=== PATIENT | male | born 1995 | race Caucasian/White ===

== ENCOUNTER 2021-04-03 01:29 | Emergency (ER) | payer OTHER ==
[~2021-04-03] VITALS: Ht 175.3 cm; Wt 91.2 kg
[2021-04-03] MEDS ORDERED: ZYNCOF 20-400120 ML PO (05:37)
== END 2021-04-03 05:42 | disposition home or self-care (01) ==
LOC: ER 01:29
DX: U07.1 COVID-19 (principal)

== ENCOUNTER 2024-02-09 12:17 | Emergency (ER) | payer OTHER ==
[~2024-02-09] VITALS: Ht 175.3 cm; Wt 92.1 kg
[~2024-02-09 12:17] MED LIST: ALLEGRA-D 24 H1 EACH PO; INTESTINEX680 M1 PO; ONDANSETRON HCL4 MG PO; PEPCID AC10 MG PO; ZYNCOF 20-400120 ML PO
[2024-02-09] MEDS ORDERED: RINGERS SOLUTION,LACTATED 1,000 ML IV STA (13:08)
[2024-02-09] MEDS ORDERED: FAMOtidine 10 MG/ML (4ML VIAL) IV STA (13:10)
[2024-02-09] MEDS ORDERED: ONDANSETRON HCL 2 MG/ML VIAL IV ONE (13:15)
[2024-02-09 13:47] LABS: HEMATOCRIT 44.7 % (39.0-48.0); HEMOGLOBIN 15.2 g/dL (13-16.00); MEAN CELL VOLUME 85.8 fL (80.0-100.00); MEAN CORPUSCULAR HEMOGLOBIN 29.1 pg (27.00-32.0); MEAN CORPUSCULAR HGB CONC 33.9 g/dl (32.0-36.0); PLATELET COUNT 215 K/uL (150-450); RED BLOOD COUNT 5.21 M/uL (4.00-6.00); RED CELL DISTRIBUTION WIDTH 12.6 % (11.5-14.5)
[2024-02-09 14:00] LABS: CALCIUM 9.1 mg/dL (8.5-10.1); CREATININE SERUM 1.06 mg/dL (0.70-1.30); GFR 84.45; POTASSIUM 4.23 mEq/L (3.5-5.1)
[2024-02-09 14:57] LABS: PH,URINE 5.5 (5.0-8.0); URINE APPEARANCE Cloudy; URINE BILIRRUBIN Negative (NEGATIVE); URINE BLOOD Negative; URINE COLOR Dark Yellow; URINE GLUCOSE Negative (NEGATIVE); URINE KETONE Trace (NEGATIVE); URINE LEUKOCYTE Negative; URINE NITRATE Negative; URINE PROTEIN Trace (NEGATIVE); URINE UROBILINOGEN 0.2 E.U./dl
[2024-02-09 15:00] LABS: URINE EPITHELIAL CELLS 8.7 uL (0.0-38.8); URINE WBC 28.5 uL (0.0-23.2)
[2024-02-09 15:14] LABS: URINE CAST 0.15 uL (0.0-1.40)
[2024-02-09] MEDS ORDERED: 0.9 % SODIUM CHLORIDE 1,000 ML IV STA (15:19)
[2024-02-09] MEDS ORDERED: CIPROFLOXACIN IN 5 % DEXTROSE 400 MG/200 ML PIGGYBAG IV STA (15:19)
[2024-02-09] MEDS ORDERED: METRONIDAZOLE/SODIUM CHLORIDE 500 MG/100 ML PIGGYBACK IV STA (15:20)
[2024-02-09 18:15] LABS: HEMOGLOBIN 14.3 g/dL (13-16.00); MEAN CELL VOLUME 85.2 fL (80.0-100.00); MEAN CORPUSCULAR HEMOGLOBIN 29.7 pg (27.00-32.0); MEAN CORPUSCULAR HGB CONC 34.8 g/dl (32.0-36.0); PLATELET COUNT 177 K/uL (150-450); RED BLOOD COUNT 4.81 M/uL (4.00-6.00); RED CELL DISTRIBUTION WIDTH 12.5 % (11.5-14.5)
== END 2024-02-09 22:30 | disposition home or self-care (01) ==
LOC: ER 12:18
PROVIDERS: Emergency Medicine; General Practice
DX: A05.9 Bacterial foodborne intoxication, unspecified (principal); R19.7 Diarrhea, unspecified